=== PATIENT | female | born 1955 | race Caucasian/White ===

== ENCOUNTER 2018-08-19 19:33 | Emergency (ER) | payer BC ==
[2018-08-19] MEDS: IPRATROPIUM (NEB) 0.5 MG/2.5 ML AMP HHN (21:18)
[2018-08-19] MEDS: ALBUTEROL 0.083% (NEB) 2.5 MG/3 ML AMP HHN (21:19)
== END 2018-08-19 22:28 | disposition home or self-care (01) ==
LOC: FTE 19:33
DX: J20.8 Acute bronchitis due to other specified organisms (principal); J00 Acute nasopharyngitis [common cold]; R40.2412 Glasgow coma scale score 13-15, at arrival to emergency department
CPT/HCPCS: 94664; 99284-25